=== PATIENT | male | born 1960 | race Two or more races ===

== ENCOUNTER 2017-10-23 08:30 | Inpatient (IN) | payer OTHER ==
[~2017-10-23] VITALS: Ht 172.7 cm; Wt 79.8 kg
[2017-12-31] MEDS ORDERED: METOPROLOL SUCC25 MG ORAL (13:01)
[2017-12-31] MEDS ORDERED: ASPIR 8181 MG ORAL (13:01)
[2017-12-31] MEDS ORDERED: ATORVASTATIN CA20 MG ORAL (13:01)
[2017-12-31] MEDS ORDERED: BENICAR20 MG ORAL (13:02)
[2018-01-01] VITALS (14 sets, daily range): BP systolic 65–132; BP diastolic 65–88
[2018-01-01] MEDS ORDERED: Vancomycin 1gm inj IVPB ONE (06:29)
[2018-01-01] MEDS ORDERED: Metoclopramide 10mg/2ml Inj IVP PRN (06:30)
[2018-01-01] MEDS ORDERED: Gelfoam Size TOPIC ONE (06:30)
[2018-01-01] MEDS ORDERED: Thrombin 5000 units TOPIC ONE ×3 (06:30→09:09)
[2018-01-01] MEDS ORDERED: Bupivacaine w/Epi 0.5% 30ml Vial INJ ONE (06:30)
[2018-01-01] MEDS ORDERED: Ketorolac 30mg Inj IV PRN ×2 (06:30)
[2018-01-01] MEDS ORDERED: fentaNYL 100 mcg/2 mL IV PRN (06:30)
[2018-01-01] MEDS ORDERED: LR 1000ml 1,000 ML IVLG SCH (06:30)
[2018-01-01] MEDS ORDERED: LORazepam Inj 2mg/ml 1ml IV PRN (06:30)
[2018-01-01] MEDS ORDERED: HYDROcodone/Acetamin 7.5/325 tab ORAL PRN ×3 (06:30→07:30)
[2018-01-01] MEDS ORDERED: oxyCODONE HCL/Acetaminophen 5/325mg ORAL PRN (06:30)
[2018-01-01] MEDS ORDERED: Bacitracin 50000 Units Vial ONE (06:30)
[2018-01-01] MEDS ORDERED: Hydromorphone 0.5mg/0.5ml inj IVP PRN (06:30)
[2018-01-01] MEDS ORDERED: DiphenhydrAMINE 50mg/ml Inj IVP PRN (06:30)
[2018-01-01] MEDS ORDERED: Meperidine 50mg/ml Inj(FOR RIGORS ONLY) IVP PRN (06:30)
[2018-01-01] MEDS ORDERED: Norco 5mg/325mg tab ORAL PRN ×2 (06:30→07:30)
[2018-01-01] MEDS ORDERED: Midazolam 2mg/2ml Inj IVP PRN (06:30)
[2018-01-01] MEDS ORDERED: Atropine Sulfate 0.4mg/ml inj IVP PRN (06:30)
[2018-01-01] MEDS ORDERED: Zemuron 50mg/5ml Inj IV ONE (06:33)
[2018-01-01] MEDS ORDERED: Lidocaine 1% MPF 10mg/ml 5ml ONE (06:58)
[2018-01-01] MEDS ORDERED: Dexamethasone 4mg/ml vial ONE (06:58)
[2018-01-01] MEDS ORDERED: Sodium Chloride 10ml vial INJ ONE (06:58)
[2018-01-01] MEDS ORDERED: Sterile Water Irrig 1000ml IRRIG ONE (07:00)
[2018-01-01] MEDS ORDERED: LR 1000ml ONE (07:00)
[2018-01-01] MEDS ORDERED: ceFAZolin sod 1 GM in D5W 55 ML IVPB ONE (07:00)
[2018-01-01] MEDS ORDERED: Propofol 1,000mg/ 100ml btl IV ONE (07:00)
[2018-01-01] MEDS ORDERED: NS Irrig 1000ml ONE (07:00)
[2018-01-01] MEDS ORDERED: Acetaminophen (Non formulary) 100 ML IV ONE (07:00)
[2018-01-01] MEDS ORDERED: fentaNYL 100 mcg/2 mL IV ONE ×2 (07:01→09:25)
--- NOTE | 2018-01-01 07:19 | Pre-Procedure Note/Attestation ---
Pre-Procedure Note/Attestation Complete Prior to Procedure Procedure Narrative: ACDF C5-6 with iliac crest bone marrow aspiration, with allograft and autograft Indications for Procedure Pre-Operative Diagnosis: cervical radiculopathy Attestation I attest that I discussed the nature of the procedure; its benefits; risks and complications; and alternatives (and the risks and benefits of such alternatives ), prior to the procedure, with the patient (or the patient's legal school admissions representative). I attest that, if there was a reasonable possibility of needing a blood transfusion, the patient (or the patient's legal school admissions representative) was given the [facility] standardized written summary, pursuant to the Nirmal Ted Blood Safety Act ([place] Health and Safety Code # 1645, as amended). I attest that I re-evaluated the patient just prior to the surgery and that there has been no change in the patient's H&P, except as documented below: Jones Pires MD Jan 01, 2018 07:19
--- NOTE | 2018-01-01 07:23 | Anethesia Preoperative Eval ---
Anesthesia Pre-op PMH/ROS General Date of Evaluation: Jan 01, 2018 Time of Evaluation: 07:11 Anesthesiologist: Yahaira ASA Score: ASA 3 Mallampati Score Class I : Soft palate, uvula, fauces, pillars visible Class II: Soft palate, uvula, fauces visible Class III: Soft palate, base of uvula visible Class IV: Only hard plate visible Mallampati Classification: Class III Surgeon: Lexis Diagnosis: Neck Pain Surgical Procedure: ACDF C5-6 Anesthesia History: none Social History: smoking Family History: no anesthesia problems Allergies: Coded Allergies: No Known Allergies (Unverified , 12/27/17) Medications: see eMAR Patient NPO?: Yes NPO Date: Dec 31, 2017 NPO Time: 2100 Past Medical History Cardiovascular: Reports: HTN, CAD - Stent, other - HL Anesthesia Pre-op Phys. Exam Physician Exam Last Vital Signs Date Time Temp Pulse Resp B/P (MAP) Pulse Ox O2 Delivery O2 Flow Rate FiO2 01/01/18 06:11 97.6 55 20 126/72 (90) 100 97.6 01/01/18 05:49 Room Air Constitutional: NAD Neurologic: CN 2-12 intact Cardiovascular: RRR Respiratory: CTA Gastrointestinal: S/NT/ND Airway Exam Mallampati Score: Class III MO: limited ROM: limited Teeth: intact Anesthesia Pre-op A/P Risk Assessment & Plan Assessment: ASA 3 Plan: GA, SED, GlideScope Go Status Change Before Surgery: No Pre-Antibiotics Dru Grams Ancef IV Given Within 1 Hr of Incision: Yes Time Given: 07:26 Paul Syed MD Jan 01, 2018 07:23
--- NOTE | 2018-01-01 07:24 | Immediate Post-Op Evaluation ---
Immediate Post-Op Evalulation Immediate Post-Op Evalulation Procedure: ACDF C5-6 Date of Evaluation: Jan 01, 2018 Time of Evaluation: 10:22 IV Fluids: 1100 LR Blood Products: 0 Estimated Blood Loss: 10 Urinary Output: 0 Blood Pressure Systolic: 124 Blood Pressure Diastolic: 81 Pulse Rate: 72 Respiratory Rate: 16 O2 Sat by Pulse Oximetry: 100 Temperature (Fahrenheit): 97.3 Pain Score (1-10): 2 Nausea: No Vomiting: No Complications 0 Patient Status: awake, reacts, patent, extubated, none Dru Grams Ancef IV Given Within 1 Hr of Incision: Yes Time Given: 07:26 Paul Syed MD Jan 01, 2018 07:24
[2018-01-01] MEDS ORDERED: Naloxone 0.4mg/ml Inj IVP PRN (07:30)
[2018-01-01] MEDS ORDERED: HYDROmorphone 1mg/ml Carpuject IVP PRN (07:30)
[2018-01-01] MEDS ORDERED: Glycopyrrolate 0.2mg/ml 1ml Vial ONE ×8 (07:45→09:48)
[2018-01-01] MEDS ORDERED: Heparin 1000 units/ml 1ml Vial ONE (07:53)
[2018-01-01] MEDS ORDERED: Neostigmine 1mg/ml 10ml Inj ONE (08:29)
[2018-01-01] MEDS: Docusate 100mg cap ORAL SCH ×2 (09:00→17:09)
[2018-01-01] MEDS: Thrombin 5000 units spray kit TOPIC ONE ×2 (09:04→09:05)
--- NOTE | 2018-01-01 09:56 | Brief Operative Note ---
Immediate Post Operative Note Operative Note Pre-op Diagnosis: cervical radiculopathy Procedure: ACDF C5-6 WITH IC BMAC Post-op Diagnosis: CERVICAL RADICULOPATHY Post-op Diagnosis: same as pre-op Findings: consistent w/pre-op dx studies Surgeon: RADHA [employer] Instructor: YOLIS Anesthesiologist: LESLY Anesthesia: general Specimen: yes Complications: none Condition: stable Fluids: 1100CC Estimated Blood Loss: minimal - 10CC Drains: none Implant(s) used?: Yes Jones Pires MD Jan 01, 2018 09:56
[2018-01-01] MEDS ORDERED: Chloraseptic Spray 20mL Bottle ORAL PRN (11:45)
--- NOTE | 2018-01-01 12:30 | History and Physical ---
History of Present Illness General Date patient seen: Jan 01, 2018 Present Illness HPI 57 year old male with hx of hypertension and cervical radiculopathy admitted for ACDF C5-6 WITH IC BMAC. After the surgery he is admitted to surgical floor for post op care. He is awake and comfortable now. Allergies: Coded Allergies: No Known Allergies (Unverified , 12/27/17) Medication History Scheduled Aspirin* (Aspir 81*), 81 MG ORAL DAILY, (Reported) Atorvastatin Calcium* (Atorvastatin Calcium*), 20 MG ORAL BEDTIME, (Reported) Metoprolol Succinate* (Metoprolol Succinate*), 25 MG ORAL DAILY, (Reported) Olmesartan Medoxomil (Benicar), 20 MG ORAL DAILY, (Reported) Patient History Healthcare decision maker CARLY MILLS- Resuscitation status Full Code Advanced Directive on File Past Medical/Surgical History Past Medical/Surgical History: (1) Cervical radiculopathy (2) History of hypertension Review of Systems Constitutional: Reports: no symptoms Eye: Reports: no symptoms ENT: Reports: no symptoms Respiratory: Reports: no symptoms Physical Exam General Appearance: WD/WN Lines, tubes and drains: peripheral HEENT: normocephalic, atraumatic Neck: non-tender, normal alignment Respiratory/Chest: chest wall non-tender, lungs clear Cardiovascular/Chest: normal peripheral pulses, normal rate Abdomen: non tender, no mass Genitourinary/Rectal: normal genital exam Extremities: normal range of motion, non-pitting Last 24 Hour Vital Signs Date Time Temp Pulse Resp B/P (MAP) Pulse Ox O2 Delivery O2 Flow Rate FiO2 01/01/18 11:11 Room Air 01/01/18 11:10 97.4 71 16 96/65 (75) 99 97.4 01/01/18 11:00 97.6 72 19 118/80 100 Nasal Cannula 3 97.6 01/01/18 10:54 97.6 01/01/18 10:50 69 13 113/76 100 Nasal Cannula 3 01/01/18 10:40 71 16 125/83 100 Nasal Cannula 3 01/01/18 10:30 97.3 01/01/18 10:30 70 14 132/81 100 Nasal Cannula 3 01/01/18 10:20 68 14 121/75 100 Simple Mask 6 01/01/18 10:15 72 13 125/77 100 Simple Mask 6 01/01/18 10:11 207.1 72 16 100 01/01/18 10:09 97.3 74 15 124/81 100 Simple Mask 6 97.3 01/01/18 06:11 97.6 55 20 126/72 (90) 100 97.6 01/01/18 05:49 Room Air Height (Feet): 5 Height (Inches): 8.00 Weight (Pounds): 176 Medications Current Medications Medications (Trade) Dose Ordered Sig/Aimee Route PRN Reason Start Time Stop Time Status Last Admin Dose Admin Acetaminophen/ Hydrocodone Bitart ([place] 5/325) 1 tab Q1H PRN ORAL Mild Pain (Pain Scale 1-3) 01/01/18 06:30 01/01/18 15:00 Acetaminophen/ Hydrocodone Bitart ([place] 5/325) 1 tab Q3H PRN ORAL pain score 1-3 01/01/18 07:30 01/08/18 07:29 UNV Acetaminophen/ Hydrocodone Bitart ([place] 7.5/325) 1 tab Q1H PRN ORAL Moderate Pain (Pain Scale 4-6) 01/01/18 06:30 01/01/18 15:00 Acetaminophen/ Hydrocodone Bitart ([place] 7.5/325) 1 tab Q3H PRN ORAL pain score 4-6 01/01/18 07:30 01/08/18 07:29 UNV Acetaminophen/ Hydrocodone Bitart ([place] 7.5/325) 2 tab Q3H PRN ORAL pain scale 7-10 01/01/18 07:30 01/08/18 07:29 UNV Al Hydroxide/Mg Hydroxide (Mylanta) 15 ml Q1H PRN ORAL gi upset 01/01/18 06:30 01/01/18 15:00 Atropine Sulfate (Atropine 0.4mg/ ml) 0.5 mg Q5M PRN IVP HR<40 01/01/18 06:30 01/01/18 15:00 Cefazolin Sodium 1 gm/Dextrose 55 ml @ 110 mls/hr EVERY 8 HOURS IV 01/01/18 14:00 01/08/18 13:59 UNV Diphenhydramine HCl (Benadryl) 25 mg Q15M PRN IVP Itching 01/01/18 06:30 01/01/18 15:00 Docusate Sodium (Colace) 100 mg TWICE A DAY ORAL 01/01/18 09:00 01/31/18 08:59 UNV Fentanyl Citrate (Sublimaze 100 mcg/2 mL) 25 mcg Q10M PRN IV Moderate Pain (Pain Scale 4-6) 01/01/18 06:30 01/01/18 15:00 Hydralazine HCl (Apresoline) 5 mg Q30M PRN IV SBP>160 / DBP>90 01/01/18 06:30 01/01/18 15:00 Hydromorphone HCl (Dilaudid) 0.5 mg Q15M PRN IVP Severe Pain (Pain Scale 7-10) 01/01/18 06:30 01/01/18 15:00 Hydromorphone HCl (Dilaudid) 1 mg Q2H PRN IVP Breakthrough Pain 01/01/18 07:30 01/08/18 07:29 UNV Hydromorphone HCl (Dilaudid) 1 mg Q4H PRN SUBQ Mild Pain (Pain Scale 1-3) 01/01/18 07:30 01/08/18 07:29 UNV Hydromorphone HCl (Dilaudid) 2 mg Q3H PRN SUBQ Severe Pain (Pain Scale 7-10) 01/01/18 07:30 01/08/18 07:29 UNV Hydromorphone HCl (Dilaudid) 2 mg Q4H PRN SUBQ Moderate Pain (Pain Scale 4-6) 01/01/18 07:30 01/08/18 07:29 UNV Ketorolac Tromethamine (Toradol 30mg) 15 mg Q1H PRN IV Moderate Breakthru Pain (5-7) 01/01/18 06:30 01/01/18 15:00 Ketorolac Tromethamine (Toradol 30mg) 30 mg Q1H PRN IV Severe Breakthru Pain (>7) 01/01/18 06:30 01/01/18 15:00 01/01/18 10:30 Lactated Ringer's 1,000 ml @ 10 mls/hr Q24H IVLG 01/01/18 06:30 01/01/18 15:00 Lorazepam (Ativan 2mg/ml 1ml) 1 mg Q15M PRN IV For Anxiety 01/01/18 06:30 01/01/18 15:00 Meperidine HCl (Demerol) 25 mg Q5M PRN IVP Shivering.May repeat x 1 01/01/18 06:30 01/01/18 15:00 Metoclopramide HCl (Reglan) 10 mg Q1H PRN IVP Nausea & Vomiting 01/01/18 06:30 01/01/18 15:00 Midazolam HCl (Versed 2mg/2ml vial) 1 mg Q15M PRN IVP For Anxiety 01/01/18 06:30 01/01/18 15:00 Naloxone HCl (Narcan) 0.1 mg PRN PRN IVP RR<12/min, pt unarousable 01/01/18 07:30 01/31/18 07:29 UNV Ondansetron HCl (Zofran) 4 mg Q1H PRN IVP Nausea & Vomiting 01/01/18 06:30 01/01/18 15:00 Oxycodone/ Acetaminophen (Percocet 5-325) 1 tab Q1H PRN ORAL Severe Pain (Pain Scale 7-10) 01/01/18 06:30 01/01/18 15:00 Phenol/Menthol (Chloraseptic) 1 spray Q3H PRN ORAL SORE THROAT 01/01/18 11:45 01/31/18 11:44 UNV Sodium Chloride 1,000 ml @ 100 mls/hr Q10H IV 01/01/18 11:45 01/31/18 11:44 UNV Assessment/Plan Problem List: (1) ACDF C5-6 WITH IC BMAC (2) Cervical radiculopathy ICD Codes: M54.12 - Radiculopathy, cervical region SNOMED: 39112201 (3) History of hypertension ICD Codes: Z86.79 - Personal history of other diseases of the circulatory system SNOMED: 234633462 Assessment/Plan pain management symptomatic treatment resume antihypertensive meds. dvt prophylaxis. Lisa Santos MD Jan 01, 2018 12:30
--- NOTE | 2018-01-01 15:21 | Diagnostic Imaging Report ---
Indication: Neck pain. Intraoperative imaging Findings: 3 fluoroscopic views of the cervical spine were obtained. Localization followed by anterior fusion plate and screw, corpectomy/discectomy performed at C5-6. IMPRESSION: Intraoperative imaging
[2018-01-01] MEDS: ceFAZolin sod 1 GM in D5W 55 ML IVP SCH (17:09)
--- NOTE | 2018-01-01 20:15 | Operative Note - Dictated ---
DATE OF OPERATION: 01/01/2018 PREOPERATIVE DIAGNOSIS: C5-C6 disk protrusion with stenosis and left upper extremity radiculopathy. POSTOPERATIVE DIAGNOSIS: C5-C6 disk protrusion with stenosis and left upper extremity radiculopathy. PROCEDURES PERFORMED: 1. Anterior cervical diskectomy and interbody fusion at C5-C6 2. Anterior instrumentation at C5-C6. 3. Insertion of biomechanical device with local autograft, allograft and bone marrow aspirate concentrate. 4. [place] of local autograft. 5. Right iliac crest bone marrow aspiration. SURGEON: Jones Pires M.D. SUPERVISOR/PORT DIRECTOR: Milan Masterson M.D. ANESTHESIA: General endotracheal anesthesia. SPECIMEN: C5-C6 disk. ANESTHESIOLOGIST: Paul Syed M.D. ESTIMATED BLOOD LOSS: 10 mL. INTRAVENOUS ANTIBIOTICS: 2 g of Ancef. COMPLICATIONS: None. FLUIDS: 1100 mL of crystalloid. BACKGROUND INDICATIONS: This is a pleasant gentleman, who failed nonoperative treatment and option for above treatment was given. Risks, alternatives, and benefits were discussed at length. The patient wished to proceed. Risks include, but are not limited to, anesthesia complications including and medical complications, which including liver, kidney, cardiopulmonary deficits, bleeding, infection, neurovascular injury, liver dysfunction, kidney dysfunction, cardiopulmonary deficits, bleeding infection, dysphonia, dysphagia, hematoma of the neck, nerve root injury, paralysis, spinal cord injury, CSF leak, dural tear, fracture of the hardware, loosening of the hardware, need for revision, decompression and fusion, swallowing difficulties, esophageal injury, tracheal injury, recurrent laryngeal nerve injury as well as other complications. The patient understood and wished to proceed. Written and verbal consent was given. No guarantees were given. OPERATIVE FINDINGS: Disk protrusion at C5-C6 with left and right paracentral extension with lateral recess stenosis and impingement and stenosis to the exiting left C6 nerve root. DESCRIPTION OF OPERATION: The patient was brought into the operating room supine on a stretcher. Appropriate IV lines were placed by the anesthesiologist. 2 g of Ancef was administered 30 minutes before the incision. The patient was induced and intubated without complication. The patient was positioned onto the operating room table. The neck was placed in neutral alignment. The arms were tucked by the side. All bony prominences were padded as well as the four extremities. SSEP, EMG, and dermatomal EMG neurophysiological leads were placed and baselines remained stable except for short periods where the left arm lost some amplitude and neurophysiologist camera technician loosened the arm alatorre and the recordings were obtained and returned back to baseline, otherwise everything remained stable. Preoperative fluoroscopy revealed the planned incision to be over C5-C6. The neck was in adequate alignment. The neck was prepped and draped in usual sterile fashion. At this point, an incision was carried out with a scalpel on the anterior right side of the neck in the crease of the neck. Hemostasis was achieved with bipolar cautery. The platysma was incised in line with the skin incision. Blunt dissection was carried out into the interval between the strap muscles and the sternocleidomastoid. Superficial cervical fascia was dissected caudally as well as cephalad. Carotid pulse was palpated and was found to be well lateral to the field of dissection. Deep cervical fascia was encountered. Once the deep cervical fascia was found, blunt dissection was carried out with [place] as well as finger dissection to find the prevertebral space. The longus colli was found on both sides of the spine. The longus coli was subperiosteally dissected off of the spine. Retractors were set in place. Spinal needle was used to identify the C5-C6 disk level. At this point, manager ent retractors were set into place. The intraoperatively sterilely draped microscope was used throughout the case from skin to skin incision. At this point, the diskectomy was begun and #15 scalpel was used to make a box incision into the anterior annulus and with straight and curved curettes #1, #2, and #3 Kerrison punches, a radical diskectomy was done at C5-C6. The posterior aspect of the vertebral bodies of C5 and C6 were drilled out to the level of the posterior longitudinal ligament. There was a disk herniation centrally with the right and left paracentral extension with moderate left neural foraminal stenosis and impingement of the left C6 nerve root by disk and by osteophyte. At this point, a complete decompression of the foraminal lateral recess central canal was done. The posterior longitudinal ligament was removed with Microsect curettes. There was a small disk fragment, which was subligamentous on the left side on top of the left C6 nerve root compressing the C6 nerve root. This was removed. At this point, further investigation revealed an excellent decompression. Valsalva at 40 mmHg was done. There was no CSF leak. Attention was diverted to the fusion part. Before the skin incision in the neck, a Jamshidi needle was used in the right iliac crest, which was previously prepped and draped in the usual sterile fashion and 30 mL of bone marrow was aspirated in three separate vials of 10 mL syringes in three different directions in the iliac crest. This was sent off for concentration. Once the concentrate was finished, it was mixed in with local autograft which was harvested from the vertebral bodies at C5 and C6, Amanda allograft and was placed into the PEEK interbody spacer. Now, trials were chosen at the C5-C6 from the spinal element system and a lordotic 8 mm in height PEEK interbody at 8 mm lordotic trial was found to oppose the endplates well, recreates the disk height and gave good lordosis and at that site PEEK interbody spacer was chosen, was packed with allograft, local autograft, bone marrow aspirate concentrate and tamped into place at C5-C6 with excellent apposition against the endplates and good lordosis. A [place] plate measuring 12 mm was bent in a lordotic fashion and fixed to the anterior surface of the C5 and C6 vertebral bodies with 14 mm self-drilling screws which sat below the locking mechanism of the [place] plate well and had excellent purchase at all . At this point, the wound was copiously irrigated with triple antibiotic solution and hemostasis was achieved with Gelfoam, thrombin, and bipolar cautery and attention was diverted to closure. The platysma was closed with 3-0 Vicryl sutures. The subcuticular layer was closed with 3-0 Monocryl sutures in a watertight interrupted fashion. The skin was closed with Dermabond and a sterile dressing. The sterile dressing was placed over the right hip as well as cervical collar was placed. The patient was extubated, was found to be neurovascularly intact and taken to the recovery room in stable condition. He was admitted to the hospital for monitoring. Jones Pires M.D. DR: TYLER JOB#: [id number] CC:
[2018-01-01] MEDS ORDERED: Atorvastatin 20mg tab ORAL SCH (21:00)
[2018-01-01] MEDS: HYDROmorphone 1mg/ml Carpuject SUBQ PRN (21:35)
[2018-01-02] VITALS: BP 119/74
[2018-01-02] MEDS: ceFAZolin sod 1 GM in D5W 55 ML IVP SCH ×2 (00:56→08:06)
[2018-01-02 04:00] VITALS: BP 114/69
[2018-01-02] MEDS: HYDROmorphone 1mg/ml Carpuject SUBQ PRN (04:47)
[2018-01-02 08:00] VITALS: BP 143/72
[2018-01-02] MEDS: Docusate 100mg cap ORAL SCH (08:06)
[2018-01-02] MEDS ORDERED: Metoprolol Succinate XL 25mg tab ORAL SCH ×2 (09:00)
--- NOTE | 2018-01-02 10:39 | General Progress Note ---
Progress Note Progress Note MIN NECK PAIN ARM PAIN COMPLETELY RESOLVED MILD SORE THROAT AVSS A AND O TIMES 3 DRESSING CDI 5/5 MOTOR IN UE AND THE LE CALVES SOFT AND NT LT INTACT DOING WELL DC HOME RX NORCO AND SOMA FU 7 DAYS INSTRUCTIONS GIVEN Jones Pires MD Jan 02, 2018 10:39
[2018-01-02] MEDS ORDERED: NORCO 10-325 T1 EACH ORAL (10:42)
[2018-01-02] MEDS ORDERED: SOMA350 MG PO (10:42)
[2018-01-02] MEDS ORDERED: 1/2 NS 1000ml IV ONE (11:09)
[2018-01-02 12:36] VITALS: BP 134/64
--- NOTE | 2018-01-02 12:36 | 48 Hour Post Anesthesia Eval ---
Post Anesthesia Evaluation Procedure: ACDF C5-6 Date of Evaluation: Jan 02, 2018 Time of Evaluation: 12:34 Blood Pressure Systolic: 134 0: 64 Pulse Rate: 72 Respiratory Rate: 20 Temperature (Fahrenheit): 97.8 O2 Sat by Pulse Oximetry: 98 Airway: patent Nausea: No Vomiting: No Pain Intensity: 3 Hydration Status: adequate Cardiopulmonary Status: stable Mental Status/LOC: patient returned to baseline Follow-up Care/Observations: n/a Post-Anesthesia Complications: none Follow-up care needed: N/A Nasim Kohler MD Jan 02, 2018 12:36
--- NOTE | 2018-01-03 12:39 | Discharge Summary ---
Discharge Summary Discharge Summary _ DATE OF ADMISSION: 01/01/2018 DATE OF DISCHARGE: 01/02/2018 SURGEON: Dr. Jones Pires BRIEF HOSPITAL COURSE: Patient was diagnosed with C5-C6 disc protrusion with left upper extremity radiculopathy. He failed nonoperative treatment and shunt for surgical treatment was given. He was Admitted and underwent ACDF C5-C6 with right iliac crest bone marrow aspiration. He tolerated procedure well. Surgery was uneventful. Post-operatively, patient was admitted for post-op care. Patient was placed on SCDs for DVT prophylaxis and was encouraged use of incentive spirometer. Patient was given pain management. Patient was seen by PT and OT. Diet was advanced. Incision was clean, dry and intact. Patient was ambulating well with good pain control and tolerating diet. He was resumed on his antihypertensives. Patient was eventuallly cleared for dischage home. FINAL DIAGNOSES: C5-C6 disc protrusion with stenosis and left upper extremity radiculopathy Status post ACDF C5-C6 (Refer to operative report) DISPOSITION: Patient was discharged home. DISCHARGE INSTRUCTIONS: Follow-up in 1-2 weeks. I have been assigned to dictate discharge summary on this account, and I was not involved in the patient's management. Augusta Johnson NP Jan 03, 2018 12:39
== END 2018-01-02 11:10 | disposition home or self-care (01) | DRG 473 ==
LOC: SDSOVERFLO 01-01 05:22 → 3E 01-01 11:10
PROC: 0RG10A0 Fusion of Cervical Vertebral Joint with Interbody Fusion Device, Anterior Approach, Anterior Column, Open Approach (ICD-10-PCS; principal; 2018-01-01 07:00)
PROC: 07DR3ZZ Extraction of Iliac Bone Marrow, Percutaneous Approach (ICD-10-PCS; principal; 2018-01-01 07:00)
PROC: 4A11X4G Monitoring of Peripheral Nervous Electrical Activity, Intraoperative, External Approach (ICD-10-PCS; principal; 2018-01-01 07:00)
PROC: 0RB30ZZ Excision of Cervical Vertebral Disc, Open Approach (ICD-10-PCS; principal; 2018-01-01 07:00)
DX: M50.122 Cervical disc disorder at C5-C6 level with radiculopathy (principal); I10 Essential (primary) hypertension; M48.02 Spinal stenosis, cervical region
CPT/HCPCS: 36415; 72040; 76001; 86850; 86900; 86901; 87081; J2405; J2710